=== PATIENT | male | born 1970 | race Caucasian/White ===

== ENCOUNTER 2020-04-03 06:17 | Outpatient (REF) | payer OTHER, SELFPAY ==
[2020-04-03 07:35] LABS: MANUAL DIFF FLAG NO
[2020-04-03 07:44] LABS: Basophils Absolute Auto 0.1 X10*3/uL (0.0-0.2); Basophils Percent Auto 0.7 % (0-2); Eosinophils Absolute Auto 0.3 X10*3/uL (0.0-0.4); Eosinophils Percent Auto 3.6 % (0-4); Hematocrit 46.5 % (42-52); Hemoglobin 16.3 g/dl (14.0-18.0); Imm Gran Abs Auto 0.03 X10*3/uL (0.00-0.03); Imm Gran Pct Auto 0.3 % (0.0-0.4); Lymphocytes Absolute Auto 3.1 X10*3/uL (1.2-4.9); Lymphocytes Percent Auto 34.6 % (20-40); Mean Corpuscular HGB Conc 35.1 g/dl (31.0-36.0); Mean Corpuscular Hemoglobin 30.8 pg (27.0-33.0); Mean Corpuscular Volume 87.7 fL (80-98); Mean Platelet Volume 10.9 fL (9.4-12.4); Monocytes Percent Auto 10.9 % (2-11); Neutrophils Absolute Auto 4.4 X10*3/uL (2.0-8.3); Neutrophils Percent Auto 49.9 % (45-73); Platelet Count 241 X10*3/uL (160-400); Red Cell Distribution Width 11.9 % (11.0-16.0); White Blood Count 8.8 X10*3/uL (4.8-10.8)
[2020-04-03 07:45] LABS: Glucose Urine UA NEG (NEG); Leukocyte Esterase Urine NEG (NEG); Nitrite Urine NEG (NEG); Specific Gravity - Urine 1.025 (1.005-1.025); Urine Blood NEG (NEG); Urine Ketones NEG (NEG); Urine Protein NEG (NEG-TRACE)
[2020-04-03 07:46] LABS: Appearance Urine CLEAR; Color Urine YELLOW
[2020-04-03 08:09] LABS: Alanine Aminotransferase 76 U/L (0-40); Albumin Level 4.5 g/dL (3.5-5.0); Alkaline Phosphatase 94 U/L (39-117); Anion Gap 10 (12-20); Aspartate Amino Transferase 38 U/L (5-37); Bilirubin Total 0.9 mg/dL (0.0-1.0); Blood Urea Nitrogen 15 mg/dL (9-16); Calcium 9.4 mg/dL (8.4-10.2); Carbon Dioxide 31 mmol/L (22-29); Chloride 103 mmol/L (96-108); Cholesterol 121 mg/dL; Estimated Glomerular Filt Rate > 60; Glucose Fasting 103 mg/dL (60-99); HDL Cholesterol 33 mg/dL; LDL Cholesterol Calculated 69 mg/dl; Potassium 4.4 mmol/l (3.3-5.1); Sodium 140 mmol/L (135-145); Total Protein 7.1 g/dL (6.5-8.0); Triglycerides 98 mg/dL
[2020-04-03 09:00] LABS: Prostate Specific Antigen 0.97 ng/mL (<0.05-4.0)
== END 2020-04-03 06:18 | disposition home or self-care (01) ==
LOC: HO.LAB 06:17
PROVIDERS: Visit Provider Internal Medicine
DX: I48.0 Paroxysmal atrial fibrillation (principal); I10 Essential (primary) hypertension; E78.00 Pure hypercholesterolemia, unspecified; Z12.5 Encounter for screening for malignant neoplasm of prostate
CPT/HCPCS: 36415; 80053; 80061; 81003; 84153; 85025

== ENCOUNTER 2020-05-21 13:53 | Outpatient (REF) | payer OTHER, SELFPAY | END 2020-05-21 13:54 | disposition home or self-care (01) | LOC: HO.LNP 13:53 | PROVIDERS: Visit Provider Internal Medicine | DX: Z20.828 Contact with and (suspected) exposure to other viral communicable diseases (principal) | CPT/HCPCS: U0003 ==

== ENCOUNTER 2020-08-12 07:22 | Day surgery (SDC) | payer OTHER, SELFPAY ==
--- NOTE | 2020-08-11 08:27 | HO.ANESPROP2 ---
Documented by User: Paulina Suarez 08/11/20 08:27 HPI - Anesthesia Eval Consult details Narrative: 49yo M for Colonoscopy Eliquis for h/o CVA [facility] Past Medical History Medical History CVA (cerebral vascular accident) Elevated cholesterol HTN (hypertension) On anticoagulant therapy Surgical History Surgical History History of kidney surgery Social History Social History Smoking Status: Never smoker Use of substances other than those prescribed or required for medical reasons: No Advance Directives: No Advance Directives Information Provided: Yes Meds Allergies Allergy/AdvReac Type Severity Reaction Status Date / Time No Known Allergies Allergy Verified 08/12/20 07:43 Home Medications Medication Instructions Recorded Confirmed Last Taken Type apixaban [Eliquis] 1 tab PO BID 06/26/20 06/26/20 08/08/20 History atorvastatin 1 tab PO DAILY 06/26/20 06/26/20 Unknown History lisinopril 1 tab PO DAILY 06/26/20 06/26/20 Unknown History metoprolol succinate 1 tab PO DAILY 06/26/20 06/26/20 Unknown History Exam Exam Date and Time: August 11, [id number] Assessment and Plan Assessment Anesthesia Assessment: Chart Reviewed Documented by User: Staci Lorenz 08/12/20 08:45 [facility] Past Medical History Medical History CVA (cerebral vascular accident) Elevated cholesterol HTN (hypertension) On anticoagulant therapy Surgical History Surgical History History of kidney surgery Social History Social History Smoking Status: Never smoker Use of substances other than those prescribed or required for medical reasons: No Advance Directives: No Advance Directives Information Provided: Yes Meds Allergies Allergy/AdvReac Type Severity Reaction Status Date / Time No Known Allergies Allergy Verified 08/12/20 07:43 Home Medications Medication Instructions Recorded Confirmed Last Taken Type apixaban [Eliquis] 1 tab PO BID 06/26/20 06/26/20 08/08/20 History atorvastatin 1 tab PO DAILY 06/26/20 06/26/20 Unknown History lisinopril 1 tab PO DAILY 06/26/20 06/26/20 Unknown History metoprolol succinate 1 tab PO DAILY 06/26/20 06/26/20 Unknown History Exam Airway Mallampati Class: II TM Dist: >3cm Neck ROM: Full Partial: Upper and Lower Loose/Missing/Broken Teeth: Yes Heart: RRR Lungs: CTA Assessment and Plan Assessment Anesthesia Assessment: Anesthesia Plan Discussed and Chart Reviewed Final Anesthetic Review NPO: Yes ASA Class: II and III Final Preanesthetic Review: Meds/Allgs Chart Reviewed, Consent Obtained/Reviewed and Anes Risks/Benef Reviewed Patient Risk: Intermediate Procedure Risk: Low Anesthetic Plan Anesthetic Plan: MAC: Disposition: Standard PACU
[2020-08-12 07:44] VITALS: BP 120/86; PULSE 65; RESP 16; TEMP 36.7; O2SAT 98; BMI 31.0
[2020-08-12] MEDS: Lactated Ringers 1,000 ML 100 ML IVCONT (08:01)
[2020-08-12 09:18] VITALS: BP 100/75; PULSE 65; RESP 18; TEMP 36.1; O2SAT 97
--- NOTE | 2020-08-12 09:20 | MHC.SHP ---
Pre-Procedural Eval Section B Chief Complaint: screening Details of Present Illness: screening Relevant Family History (Specify if Yes): No Relevant Social History: None Present Medications: see Short Stay Collaborative assessment Medical History: No relevant PMH History of Previous Operations: No relevant previous surgery Allergies: Allergies Allergy/AdvReac Type Severity Reaction Status Date / Time No Known Allergies Allergy Verified 08/12/20 07:43 Review of Systems Sugical H&P ROS: Negative: Constitution, Cardiovascular, Respiratory, Neurological, Psychiatric, Hem-Onc, Allergic/Immunologic, Gastrointestinal, Genitourinary, Musculoskeletal, Integumentary, Endocrine and Eyes/Ears/Nose/Throat Exam Surgical H&P Exam: Normal: HEENT, Normal: Heart, Normal: Lungs, Normal: Extremities, Normal: Abdomen, Normal: Skin and Normal: Neurological Plan I have reviewed the history and physical and performed a pertinent physical examination on my patient. No changes have occurred unless specified.
--- NOTE | 2020-08-12 09:21 | PM.OP ---
Brief Operative Note Date of Service: 08/12/20 Pre-op diagnosis: screening Post-op diagnosis: same (colon polyp) Procedure: colonoscopy Surgeon: Prasanna Jules Anesthesia: MAC Estimated blood loss (mL): 0 Pathology: other (polyp 85 cm) Condition: stable Disposition: PACU
[2020-08-12 09:33] VITALS: BP 110/76; PULSE 65; RESP 18; O2SAT 98
--- NOTE | 2020-08-12 10:14 | OP_ITS ---
SURGEON: Prasanna Jules MD INDICATIONS: Colon cancer screening. PREOPERATIVE DIAGNOSIS: POSTOPERATIVE DIAGNOSIS: PROCEDURE PERFORMED: Colonoscopy to the terminal ileum with snare polypectomy. ESTIMATED BLOOD LOSS: COMPLICATIONS: ANESTHESIA: ASSISTANTS: SPECIMENS: MEDICATIONS: Monitored anesthesia care. DESCRIPTION OF PROCEDURE: History and physical performed. The risks and benefits of the procedure were explained to the patient. Informed consent was obtained. The patient was placed in left lateral decubitus position. A digital rectal exam was performed, it was found to be normal. The Olympus pediatric video colonoscope was introduced into the rectum and advanced to the cecum without difficulty. The cecum was identified by transillumination, palpation, and identification of ileocecal valve. Examination was performed. The scope was removed. He tolerated the procedure well and was taken to recovery in stable condition. FINDINGS: The terminal ileum was normal. The visualized colonic mucosa was normal. In the right colon at 85 cm from the anal verge was an 8 mm polyp which was removed with a snare and recovered by suction. No other polyps were identified. Retroflexed examination showed small internal hemorrhoids. The quality of prep was good. IMPRESSION: Colon polyp. RECOMMENDATION: Follow up the biopsy results. MD ORIN Holder/PAOLA / [id number]
== END 2020-08-12 10:28 | disposition home or self-care (01) ==
PROVIDERS: PCP Internal Medicine; Visit Provider Internal Medicine Gastroenterology
PROC: 0DJD8ZZ Inspection of Lower Intestinal Tract, Via Natural or Artificial Opening Endoscopic (ICD-10-PCS; CPT 45378; principal; 2020-08-12 08:20)
DX: Z12.11 Encounter for screening for malignant neoplasm of colon (principal); D12.3 Benign neoplasm of transverse colon; K64.8 Other hemorrhoids; I10 Essential (primary) hypertension; E78.5 Hyperlipidemia, unspecified; Z86.73 Personal history of transient ischemic attack (TIA), and cerebral infarction without residual deficits; Z79.01 Long term (current) use of anticoagulants; Z79.899 Other long term (current) drug therapy
CPT/HCPCS: 45385; 88305

== ENCOUNTER 2020-10-27 15:28 | Outpatient (REF) | payer OTHER, SELFPAY ==
[2020-10-28 17:42] LABS: Lyme Abs Screen <0.90 index
== END 2020-10-27 15:29 | disposition home or self-care (01) ==
LOC: HO.LAB 15:28
PROVIDERS: PCP Internal Medicine; Visit Provider Internal Medicine
DX: T14.8XXA Other injury of unspecified body region, initial encounter (principal); W57.XXXA Bitten or stung by nonvenomous insect and other nonvenomous arthropods, initial encounter
CPT/HCPCS: 36415; 86617; 86618

== ENCOUNTER 2020-11-24 06:37 | Outpatient (REF) | payer OTHER, SELFPAY ==
[2020-11-24 07:01] LABS: MANUAL DIFF FLAG NO
[2020-11-24 07:04] LABS: Basophils Absolute Auto 0.1 X10*3/uL (0.0-0.2); Basophils Percent Auto 0.6 % (0-2); Eosinophils Absolute Auto 0.2 X10*3/uL (0.0-0.4); Eosinophils Percent Auto 2.4 % (0-4); Hematocrit 42.9 % (42-52); Hemoglobin 15.3 g/dl (14.0-18.0); Imm Gran Abs Auto 0.02 X10*3/uL (0.00-0.03); Imm Gran Pct Auto 0.3 % (0.0-0.4); Lymphocytes Absolute Auto 2.8 X10*3/uL (1.2-4.9); Mean Corpuscular HGB Conc 35.7 g/dl (31.0-36.0); Mean Corpuscular Hemoglobin 30.6 pg (27.0-33.0); Mean Corpuscular Volume 85.8 fL (80-98); Mean Platelet Volume 10.2 fL (9.4-12.4); Monocytes Absolute Auto 0.8 X10*3/uL (0.1-1.2); Monocytes Percent Auto 10.7 % (2-11); Neutrophils Absolute Auto 3.9 X10*3/uL (2.0-8.3); Platelet Count 216 X10*3/uL (160-400); Red Cell Distribution Width 11.9 % (11.0-16.0); White Blood Count 7.8 X10*3/uL (4.8-10.8)
[2020-11-24 07:31] LABS: Alanine Aminotransferase 53 U/L (0-40); Albumin Level 4.3 g/dL (3.5-5.0); Alkaline Phosphatase 99 U/L (39-117); Anion Gap 10 (12-20); Aspartate Amino Transferase 29 U/L (5-37); Bilirubin Total 1.4 mg/dL (0.0-1.0); Blood Urea Nitrogen 14 mg/dL (9-16); Calcium 9.6 mg/dL (8.4-10.2); Carbon Dioxide 26 mmol/L (22-29); Chloride 106 mmol/L (96-108); Cholesterol 107 mg/dL; Estimated Glomerular Filt Rate > 60; Glucose Fasting 102 mg/dL (60-99); HDL Cholesterol 31 mg/dL; LDL Cholesterol Calculated 58 mg/dl; Potassium 4.2 mmol/L (3.3-5.1); Sodium 138 mmol/L (135-145); Total Protein 6.9 g/dL (6.5-8.0); Triglycerides 90 mg/dL
== END 2020-11-24 06:38 | disposition home or self-care (01) ==
LOC: HO.LAB 06:37
PROVIDERS: PCP Internal Medicine; Visit Provider Internal Medicine
DX: Z12.5 Encounter for screening for malignant neoplasm of prostate (principal); I10 Essential (primary) hypertension; I48.0 Paroxysmal atrial fibrillation; E78.00 Pure hypercholesterolemia, unspecified
CPT/HCPCS: 36415; 80053; 80061; 84153; 85025

== ENCOUNTER 2022-01-02 07:37 | Outpatient (REF) | payer OTHER, SELFPAY ==
[2022-01-02 07:47] LABS: MANUAL DIFF FLAG NO
[2022-01-02 08:30] LABS: Basophils Absolute Auto 0.1 X10*3/uL (0.0-0.2); Basophils Percent Auto 0.8 % (0-2); Eosinophils Absolute Auto 0.2 X10*3/uL (0.0-0.4); Eosinophils Percent Auto 2.5 % (0-4); Hematocrit 43.8 % (42.0-52.0); Hemoglobin 15.8 g/dl (14.0-18.0); Imm Gran Abs Auto 0.02 X10*3/uL (0.00-0.03); Imm Gran Pct Auto 0.2 % (0.0-0.4); Lymphocytes Absolute Auto 3.3 X10*3/uL (1.2-4.9); Lymphocytes Percent Auto 35.9 % (20-40); Mean Corpuscular HGB Conc 36.1 g/dl (31.0-36.0); Mean Corpuscular Hemoglobin 30.6 pg (27.0-33.0); Mean Corpuscular Volume 84.7 fL (80.0-98.0); Mean Platelet Volume 10.8 fL (9.4-12.4); Monocytes Absolute Auto 0.8 X10*3/uL (0.1-1.2); Monocytes Percent Auto 9.3 % (2-11); Neutrophils Absolute Auto 4.7 x10*3/uL (2.0-8.3); Neutrophils Percent Auto 51.3 % (45-73); Platelet Count 247 X10*3/uL (160-400); Red Blood Count 5.17 X10*6/uL (4.60-5.80); Red Cell Distribution Width 12.3 % (11.0-16.0); White Blood Count 9.1 X10*3/uL (4.8-10.8)
[2022-01-02 09:00] LABS: Alanine Aminotransferase 72 U/L (0-40); Albumin Level 4.4 g/dL (3.5-5.0); Alkaline Phosphatase 99 U/L (39-117); Anion Gap 12 (12-20); Aspartate Amino Transferase 39 U/L (5-37); Bilirubin Total 1.1 mg/dL (0.0-1.0); Blood Urea Nitrogen 15 mg/dL (9-16); Calcium 9.6 mg/dL (8.4-10.2); Carbon Dioxide 28 mmol/L (22-29); Chloride 104 mmol/L (96-108); Cholesterol 138 mg/dL; Estimated Glomerular Filt Rate > 60; Glucose Fasting 109 mg/dL (60-99); HDL Cholesterol 36 mg/dL; LDL Cholesterol Calculated 79 mg/dl; Potassium 4.2 mmol/L (3.3-5.1); Sodium 140 mmol/L (135-145); Triglycerides 119 mg/dL
[2022-01-02 09:21] LABS: Prostate Specific Antigen 1.19 ng/mL (<0.05-4.0)
== END 2022-01-02 07:38 | disposition home or self-care (01) ==
LOC: HO.LAB 07:37
PROVIDERS: PCP Internal Medicine; Visit Provider Internal Medicine
DX: Z00.00 Encounter for general adult medical examination without abnormal findings (principal); Z12.5 Encounter for screening for malignant neoplasm of prostate
CPT/HCPCS: 36415; 80053; 80061; 84153; 85025

== ENCOUNTER 2022-10-22 06:58 | Outpatient (REF) | payer OTHER, SELFPAY ==
[2022-10-22 07:55] LABS: Estimated Average Glucose 108 mg/dL; Hemoglobin A1C 147.0218 umol/L; Hemoglobin A1c % 5.4 %
[2022-10-22 08:17] LABS: Alanine Aminotransferase 43 U/L (0-40); Albumin Level 4.2 g/dL (3.5-5.0); Alkaline Phosphatase 94 U/L (39-117); Anion Gap 10 (12-20); Aspartate Amino Transferase 22 U/L (5-37); Bilirubin Total 0.8 mg/dL (0.0-1.0); Blood Urea Nitrogen 15 mg/dL (9-16); Calcium 9.8 mg/dL (8.4-10.2); Carbon Dioxide 28 mmol/L (22-29); Chloride 106 mmol/L (96-108); Estimated Glomerular Filt Rate > 60; Glucose Random 104 mg/dL (60-115); Sodium 140 mmol/L (135-145); Total Protein 6.8 g/dL (6.5-8.0)
== END 2022-10-22 06:59 | disposition home or self-care (01) ==
LOC: HO.LAB 06:58
PROVIDERS: PCP Internal Medicine; Visit Provider Internal Medicine
DX: I10 Essential (primary) hypertension (principal); I48.0 Paroxysmal atrial fibrillation; R79.89 Other specified abnormal findings of blood chemistry
CPT/HCPCS: 36415; 80053; 83036

== ENCOUNTER 2023-08-29 06:36 | Outpatient (REF) | payer OTHER, SELFPAY ==
[2023-08-29 06:47] LABS: MANUAL DIFF FLAG NO
[2023-08-29 07:32] LABS: Basophils Absolute Auto 0.1 X10*3/uL (0.0-0.2); Basophils Percent Auto 0.8 % (0-2); Eosinophils Absolute Auto 0.4 X10*3/uL (0.0-0.4); Eosinophils Percent Auto 3.4 % (0-4); Hematocrit 46.4 % (42.0-52.0); Hemoglobin 16.4 g/dl (14.0-18.0); Imm Gran Abs Auto 0.04 X10*3/uL (0.00-0.03); Imm Gran Pct Auto 0.4 % (0.0-0.4); Lymphocytes Absolute Auto 3.3 X10*3/uL (1.2-4.9); Lymphocytes Percent Auto 31.1 % (20-40); Mean Corpuscular HGB Conc 35.3 g/dl (31.0-36.0); Mean Corpuscular Hemoglobin 30.4 pg (27.0-33.0); Mean Corpuscular Volume 85.9 fL (80.0-98.0); Mean Platelet Volume 10.5 fL (9.4-12.4); Monocytes Absolute Auto 0.8 X10*3/uL (0.1-1.2); Monocytes Percent Auto 7.3 % (2-11); Platelet Count 276 X10*3/uL (160-400); Red Cell Distribution Width 12.2 % (11.0-16.0); White Blood Count 10.5 X10*3/uL (4.8-10.8)
[2023-08-29 07:49] LABS: Alanine Aminotransferase 53 U/L (0-40); Albumin Level 4.3 g/dL (3.5-5.0); Alkaline Phosphatase 100 U/L (39-117); Anion Gap 11 (12-20); Aspartate Amino Transferase 25 U/L (5-37); Blood Urea Nitrogen 15 mg/dL (9-16); Calcium 9.5 mg/dL (8.4-10.2); Carbon Dioxide 28 mmol/L (22-29); Chloride 105 mmol/L (96-108); Cholesterol 115 mg/dL (<200); Estimated Glomerular Filt Rate > 60; Glucose Fasting 123 mg/dL (60-99); HDL Cholesterol 27 mg/dL (>40); LDL Cholesterol Calculated 66 mg/dL (<100); Potassium 3.9 mmol/L (3.3-5.1); Sodium 140 mmol/L (135-145); Total Protein 7.2 g/dL (6.5-8.0); Triglycerides 114 mg/dL (<150)
[2023-08-29 08:13] LABS: Prostate Specific Antigen 2.46 ng/mL (<0.05-4.0)
== END 2023-08-29 06:37 | disposition home or self-care (01) ==
LOC: HO.LAB 06:36
PROVIDERS: PCP Internal Medicine; Visit Provider Internal Medicine
DX: Z12.5 Encounter for screening for malignant neoplasm of prostate (principal); I10 Essential (primary) hypertension; I48.0 Paroxysmal atrial fibrillation; Z86.73 Personal history of transient ischemic attack (TIA), and cerebral infarction without residual deficits
CPT/HCPCS: 36415; 80053; 80061; 84153; 85025

== ENCOUNTER 2024-04-14 10:27 | Outpatient (REF) | payer OTHER, SELFPAY ==
[2024-04-14 10:39] LABS: MANUAL DIFF FLAG NO
[2024-04-14 11:05] LABS: Basophils Absolute Auto 0.1 X10*3/uL (0.0-0.2); Basophils Percent Auto 0.8 % (0-2); Eosinophils Absolute Auto 0.5 X10*3/uL (0.0-0.4); Eosinophils Percent Auto 6.9 % (0-4); Hematocrit 42.5 % (42.0-52.0); Hemoglobin 15.2 g/dl (14.0-18.0); Imm Gran Abs Auto 0.02 X10*3/uL (0.00-0.03); Imm Gran Pct Auto 0.3 % (0.0-0.4); Lymphocytes Absolute Auto 2.6 X10*3/uL (1.2-4.9); Lymphocytes Percent Auto 34.6 % (20-40); Mean Corpuscular HGB Conc 35.8 g/dl (31.0-36.0); Mean Corpuscular Hemoglobin 30.6 pg (27.0-33.0); Mean Corpuscular Volume 85.5 fL (80.0-98.0); Mean Platelet Volume 10.6 fL (9.4-12.4); Monocytes Absolute Auto 0.7 X10*3/uL (0.1-1.2); Monocytes Percent Auto 9.8 % (2-11); Neutrophils Absolute Auto 3.6 x10*3/uL (2.0-8.3); Neutrophils Percent Auto 47.6 % (45-73); Platelet Count 213 X10*3/uL (160-400); Red Blood Count 4.97 X10*6/uL (4.60-5.80); Red Cell Distribution Width 12.6 % (11.0-16.0); White Blood Count 7.6 X10*3/uL (4.8-10.8)
[2024-04-14 11:34] LABS: Alanine Aminotransferase 62 U/L (0-40); Albumin Level 4.4 g/dL (3.5-5.0); Alkaline Phosphatase 92 U/L (39-117); Anion Gap 12 (12-20); Aspartate Amino Transferase 40 U/L (5-37); Blood Urea Nitrogen 15 mg/dL (9-16); Calcium 9.5 mg/dL (8.4-10.2); Carbon Dioxide 27 mmol/L (22-29); Chloride 106 mmol/L (96-108); Cholesterol 117 mg/dL (<200); Estimated Glomerular Filt Rate > 60; Glucose Fasting 103 mg/dL (60-99); HDL Cholesterol 33 mg/dL (>40); LDL Cholesterol Calculated 68 mg/dL (<100); Potassium 3.9 mmol/L (3.3-5.1); Sodium 141 mmol/L (135-145); Triglycerides 84 mg/dL (<150)
[2024-04-14 11:51] LABS: Prostate Specific Antigen Scr 1.61 ng/mL (<0.05-4.0)
== END 2024-04-14 10:28 | disposition home or self-care (01) ==
LOC: HO.LAB 10:27
PROVIDERS: PCP Internal Medicine; Visit Provider Internal Medicine
DX: I10 Essential (primary) hypertension (principal); E78.00 Pure hypercholesterolemia, unspecified; Z12.5 Encounter for screening for malignant neoplasm of prostate
CPT/HCPCS: 36415; 80053; 80061; 84153; 85025

== ENCOUNTER 2024-10-01 15:48 | Outpatient (AMB) | payer OTHER, SELFPAY ==
--- NOTE | 2024-10-01 15:49 | MHC.PC.OV ---
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 The patient has been lost to follow-up with [facility]. Had previously been following to manage heart failure, atrial fibrillation and history of embolic stroke. He is now compliant with Eliquis 5 mg twice daily without any recurrence of CVA. He is no longer on diuretics. Denies any dyspnea on lightheadedness, orthopnea, PND, edema, palpitations, chest pain. He is compliant with metoprolol and lisinopril as well as atorvastatin. He would be interested in following back with [facility]. He has no concerns today. [facility] Medical History (Updated 10/01/24 @ 16:45 by JAZ Hall) Combined systolic and diastolic congestive heart failure Cardioembolic stroke On anticoagulant therapy Elevated cholesterol HTN (hypertension) CVA (cerebral vascular accident) Surgical History History of kidney surgery Review of Systems Const All systems reviewed & are unremarkable except as noted in HPI and below Physical exam (Primary Care) Vital Signs: Last Vital Signs Temp 97.3 F 10/01/24 15:52 Pulse 68 10/01/24 15:52 Resp 16 10/01/24 15:52 BP 134/92 H 10/01/24 15:52 Pulse Ox 96 10/01/24 15:52 Oxygen Delivery Method Room Air 10/01/24 15:52 BMI result Body Mass Index 32.2 Const Other: General: No fevers, malaise, unintentional weight loss HEENT: No blurred vision, diplopia. No sore throat, nasal congestion, rhinorrhea, sinus pain, ear pain Cardiovascular: No chest pain, palpitations, or leg edema Respiratory: No shortness of breath, wheezing, cough GI: No abdominal pain, nausea, vomiting, diarrhea, constipation, melena, hematochezia : No dysuria, hematuria, increased urinary frequency, decreased urinary output MSK: No myalgia, back pain Neuro: No headaches, weakness, paresthesias Skin: No rashes or lesions Coding Level of Care Code New Pt Level 4 (58083) Complex EM visit Add On G2211 Diagnoses Atrial fibrillation I48.91 HTN (hypertension) I10 Elevated cholesterol E78.00 Assessment & Plan Assessment & Plan (1) Atrial fibrillation: Code(s): I48.91 - Unspecified atrial fibrillation Category: Medical Plan: Rate controlled. Continue Eliquis 5 mg twice daily for anticoagulation. Continue metoprolol. Will check CBC for any anemia given anticoagulation. He is referred back to [facility] (2) HTN (hypertension): Code(s): I10 - Essential (primary) hypertension Category: Medical Plan: Controlled with repeat blood pressure 130/80. Continue lisinopril 5 mg and metoprolol 50 mg ER. We will check BNP to evaluate renal function and electrolyte levels. (3) Elevated cholesterol: Code(s): E78.00 - Pure hypercholesterolemia, unspecified Category: Medical Plan: Lipid panel ordered. Continue atorvastatin daily, dose to be adjusted as appropriate pending results of studies. Continue with diet low in fat and highly processed foods. Recommend regular exercise. Plan Follow-up in 6 months. Colonoscopy and PSA up-to-date. Labs ordered to be completed today or in the next, if days. Orders: Orders Basic Metabolic Panel Today E78.00 - Pure hypercholesterolemia, unspecified, I10 - Essential (primary) hypertension, I63.9 - Cerebral infarction, unspecified, Z13.1 - Encounter for screening for diabetes mellitus Complete Blood Count Auto Diff Today E78.00 - Pure hypercholesterolemia, unspecified, I10 - Essential (primary) hypertension, I63.9 - Cerebral infarction, unspecified, Z13.1 - Encounter for screening for diabetes mellitus Hemoglobin A1c Today E78.00 - Pure hypercholesterolemia, unspecified, I10 - Essential (primary) hypertension, I63.9 - Cerebral infarction, unspecified, Z13.1 - Encounter for screening for diabetes mellitus Lipid Panel Today E78.00 - Pure hypercholesterolemia, unspecified, I10 - Essential (primary) hypertension, I63.9 - Cerebral infarction, unspecified, Z13.1 - Encounter for screening for diabetes mellitus Liver Panel Today E78.00 - Pure hypercholesterolemia, unspecified, I10 - Essential (primary) hypertension, I63.9 - Cerebral infarction, unspecified, Z13.1 - Encounter for screening for diabetes mellitus TSH reflex Free T4 Today E78.00 - Pure hypercholesterolemia, unspecified, I10 - Essential (primary) hypertension, I63.9 - Cerebral infarction, unspecified, Z13.1 - Encounter for screening for diabetes mellitus Referrals Cardiology Referral I48.91 - Unspecified atrial fibrillation
--- OUTSIDE RECORDS SUMMARY | 2024-10-01 15:51 | XMS_ITS | Patient Health Record ---
Author Organization [facility] Address [address] [place] [address] Care Team Providers Care Physician Coding Specialist Name Role Phone Robert Hill MD Primary Care Provider Unavaila Prasanna Gamble Jr Unavailable [phone] Reason For Referral No Information Medications Medication SIG (Take, Route, Frequency, Duration) Notes Start Date End Date Status Vitamin B6 Active Tylenol Active Metoprolol Succinate ER 50 MG Orally Active MiraLax (colon prep) 8.3 ounce ((238) grams mixed with Gatorade or Crystal Light orally begin at 5:00 p.m. the day before the procedure for 1 day 06/09/2020 Active Atorvastatin Calcium 40 MG Orally Active Eliquis 5 MG Orally Active Lisinopril 5 MG Orally Acti ve Immunizations Vaccine Route Administration Date Status Comme nts Influenza Unknown 04/30/2020 Administered Social History Tobacco Use: Social History Observation Description Date Details (start date - stop date) Never Smoker NA - NA Tobacco Use/Smoking Question Answer Notes Patient is a nonsmoker Alcohol Screen Question Answer Notes Did you have a drink containing alcohol in the p ast year? No Points 0 Interpretation Negative Problems Problem Type SNOMED Code ICD Code Onset Dates Problem Status W/U Status Risk Notes Problem 264357207 Colon cancer screening (Z12.11) Active confirmed Problem 922650899 long-term (curre nt) use of anticoagulants (Z79.01) Active confirmed Plan Of Treatment Future Test Test Name Order Date COLONOSCOPY 06/09/2020 Insurance Providers Payer Name Payer Address Payer Phone Subscriber Number Group Number Insured Name Patient Relationship to Insured Coverage Start Date Coverage End Date [facility] [address] [place] [phone] [id number] SAM PEARCE Self - patient is the insured Medical (General) History Medical History History ICD Code stroke (thrombotic) hypertension hyperlipidemia Surgical History Surgery Date(Month/Year) Kidney Stones 2014
[2024-10-01 15:52] VITALS: BP 134/92; PULSE 68; RESP 16; TEMP 36.3; O2SAT 96; BMI 32.2
== END 2024-10-01 16:20 | disposition home or self-care (01) ==
LOC: HO.HMCHD 15:48
PROVIDERS: PCP Internal Medicine; Visit Provider Physician Assistant
DX: I48.91 Unspecified atrial fibrillation (principal); I10 Essential (primary) hypertension; E78.00 Pure hypercholesterolemia, unspecified

== ENCOUNTER → 2024-10-01 15:48 | Outpatient (BNVA) | payer OTHER, SELFPAY | PROVIDERS: PCP Internal Medicine; Visit Provider Physician Assistant ==

== ENCOUNTER 2025-04-01 14:47 | Outpatient (REF) | payer OTHER, SELFPAY ==
--- NOTE | ~2025-04-01 | XR_ITS ---
EXAMINATION: XR FOOT, RIGHT CLINICAL INFORMATION: M79.671 - Pain in right foot COMPARISON: None available. TECHNIQUE: AP, lateral, and oblique views of the right foot. FINDINGS: There is soft tissue swelling lateral to the fifth MTP joint. No erosions are identified. No degenerative changes are present. XR/XR foot RT min 3V IMPRESSION: There is soft tissue swelling lateral to the fifth MTP joint. Electronically signed by: Carlos Manuel Loredo MD 04/01/2025 05:44 PM EST
[2025-04-01 15:43] LABS: MANUAL DIFF FLAG NO
[2025-04-01 16:24] LABS: Hematocrit 45.0 % (42.0-52.0); Hemoglobin 15.9 g/dl (14.0-18.0); Imm Gran Abs Auto 0.04 X10*3/uL (0.00-0.03); Imm Gran Pct Auto 0.5 % (0.0-0.4); Lymphocytes Absolute Auto 3.2 X10*3/uL (1.2-4.9); Mean Corpuscular HGB Conc 35.3 g/dl (31.0-36.0); Mean Corpuscular Hemoglobin 30.9 pg (27.0-33.0); Mean Corpuscular Volume 87.4 fL (80.0-98.0); NRBC Abs Auto 0.000 X10*3/uL (0.0-0.012); NRBC Pct Auto 0.0 /100WBC (0.0-0.2); Platelet Count 233 X10*3/uL (160-400); Red Blood Count 5.15 X10*6/uL (4.60-5.80); White Blood Count 8.8 X10*3/uL (4.8-10.8)
[2025-04-01 16:53] LABS: Alanine Aminotransferase 57 U/L (0-40); Albumin Level 4.9 g/dL (3.5-5.0); Alkaline Phosphatase 111 U/L (39-117); Anion Gap 11 (12-20); Aspartate Amino Transferase 30 U/L (5-37); Blood Urea Nitrogen 13 mg/dL (9-16); Calcium 9.4 mg/dL (8.4-10.2); Carbon Dioxide 26 mmol/L (22-29); Chloride 108 mmol/L (96-108); Cholesterol 96 mg/dL (<200); Estimated Glomerular Filt Rate > 60; HDL Cholesterol 35 mg/dL (>40); Potassium 3.8 mmol/L (3.3-5.1); Sodium 141 mmol/L (135-145); Total Protein 7.3 g/dL (6.5-8.0); Triglycerides 42 mg/dL (<150)
[2025-04-01 17:09] LABS: Prostate Specific Antigen 1.79 ng/mL (<0.05-4.0)
--- OUTSIDE RECORDS SUMMARY | 2025-04-02 06:00 | XMS_ITS | Patient Health Record ---
Author Organization [facility] Address [address] [place] [id number] Care Team Providers Care Pad Machine Operator Name Role Phone Liz (RETIRED) Robert BRAND Primary Care Provide Prasanna Rodriguez Jr Unavailable Reason For Referral No Information Medications Medication SIG (Take, Route, Frequency, Duration) Notes Start Date End Date Status Vitamin B6 Active Tylenol Active Metoprolol Succinate ER 50 MG Tablet Extended Release 24 Hour Orally Active MiraLax (colon prep) 8.3 ounce ((238) grams mixed with Gatorade or Crystal Light orally begin at 5:00 p.m. the day before the procedure; Duration: 1 day 06/09/2020 Active Atorvastatin Calcium 40 MG Tablet Orally Active Eliquis 5 MG Tablet Orally Active Lisinopril 5 MG Tablet Orally Active Immunizations Vaccine Route Administration Date Status Comme nts Influenza Unknown 04/30/2020 Administered Social History Tobacco Use: Social History Observation Description Date Details (start date - stop date) Never Smoker NA - NA Social History Drugs/Alcohol: Social Info Question Answer Notes Alcohol Screen Did you have a drink containing alcohol in the past year? 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) use of anticoagulants (Z79.01) Active confirmed Plan Of Treatment Future Test Test Name Order Date COLONOSCOPY 06/09/2020 Insurance Providers Payer Name Payer Address Payer Phone Subscriber Number Group Number Insured Name Patient Relationship to Insured Coverage Start Date Coverage End Date [facility] [address] [facility] [place] [phone] [id number] SAM PEARCE Self - patient is the insured Medical (General) History Medical History History ICD Code stroke (thrombotic) hypertension hyperlipidemia Surgical History Surgery Date(Month/Year) Kidney Stones 2014
== END 2025-04-01 14:48 | disposition home or self-care (01) ==
LOC: HO.LAB 14:47
PROVIDERS: PCP Physician Assistant; Visit Provider Physician Assistant
DX: M79.671 Pain in right foot (principal); Z79.01 Long term (current) use of anticoagulants; E78.00 Pure hypercholesterolemia, unspecified; I10 Essential (primary) hypertension; I48.91 Unspecified atrial fibrillation; Z12.5 Encounter for screening for malignant neoplasm of prostate
CPT/HCPCS: 36415; 73630; 80048; 80061; 80076; 84153; 85025

== ENCOUNTER 2025-04-01 14:47 | Outpatient (AMB) | payer OTHER, SELFPAY ==
--- NOTE | 2025-04-01 14:42 | A.OFFPC_ITS ---
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 Required: No Accompanied by: Self / Same As Patient Allergies No Known Allergies Allergy (Verified 04/01/25 14:42) Medication List - Last Reconciled 04/01/25 by JAZ Hall apixaban (Eliquis) 1 tab PO BID atorvastatin 1 tab PO DAILY lisinopril 1 tab PO DAILY metoprolol succinate ER 1 tab PO DAILY pyridoxine (vitamin B6) 50 mg PO DAILY Tobacco use date assessed: 04/01/25 Dental Screening Dental Screen Date: 04/01/25 Did you have a dental visit in the last 12 months?: No Did you have a dental problem in the last 6 months where you did not have access to dental care?: Yes Was dental information given to patient?: Patient has dentist HPI HPI Comments History of Present Illness Details 53-year-old male with history of paroxys mal atrial fibrillation, cardioembolic stroke, basilar artery thrombosis, prediabetes, hypertension, hyperlipidemia, and congestive heart failure presents to the office today for follow up. PAF/CHF/embolic stroke/basilar artery thrombosis- has a establish care with [facility], stable with prn follow up. On Eliquis for anticoagulation as well as Toprol for rate control. Not on any diuretics. Using atorvastatin for cholesterol management. Last LDL 68. No dyspnea, lightheadedness, palpitations, chest pain Hypertension-blood pressure 122/74 in the office. On Toprol Concerns: R foot pain- ongoing since [place]. Over lateral aspect of foot. Waxes and wanes in severity, Currently mild pain. Worse with ambulation. Not dependent on shoe type. Has not tried inserts. Tylenol prn. No other history of foot issues. Health Maintenance: Last colonoscopy year follow-up advised due to tubular adenoma. Dr. Jules ROS: General: No fevers, malaise, unintentional weight loss HEENT: No blurred vision, diplopia. No sore throat, nasal congestion, rhinorrhea, sinus pain, ear pain Cardiovascular: No chest pain, palpitations, or leg edema Respiratory: No shortness of breath, wheezing, cough GI: No abdominal pain, nausea, vomiting, diarrhea, constipation, melena, hematochezia : No dysuria, hematuria, increased urinary frequency, decreased urinary output MSK: No myalgia, back pain. see hpi Neuro: No headaches, weakness, paresthesias Skin: No rashes or lesions EXAM: Constitutional - Awake and Alert, No apparent distress Eyes - PERRL Cardiovascular - S1S2, RRR, No edema Respiratory - Normal lung expansion, Normal respiratory effort, No respiratory distress, CTA bilaterally Extremities - no calf tenderness bilaterally, no swelling MSK- bony abnormality at the distal aspect of the R 5th metatarsal with tenderness at the plantar surface Skin - Warm/Dry Neurological - Alert & oriented x3 Psychological - Appropriate affect [facility] Medical History (Updated 04/01/25 @ 15:07 by JAZ Hall) Combined systolic and diastolic congestive heart failure Cardioembolic stroke On anticoagulant therapy Elevated cholesterol HTN (hypertension) CVA (cerebral vascular accident) Surgical History (Updated 10/11/24 @ 14:59 by Josy Connolly) History of colonoscopy (~08/12/20) History of kidney surgery Social History Housing: House Patient Tobacco Use Status: Never used Tobacco e-Cigarette/Vaping Use: Never Used service: No Current occupational status: employed Current occupation: [employer] Questionnaire AUDIT C Alcohol Use Questionnaire (AUDIT-C) 1. How often do you have a drink containing alcohol?: Never 3. How often do you have six or more drinks on one occasion?: Never Total Score: 0 Physical exam (Primary Care) Vital Signs: Last Vital Signs Temp 97.6 F 04/01/25 14:53 Pulse 63 04/01/25 14:53 Resp 20 04/01/25 14:53 BP 122/74 04/01/25 14:53 Pulse Ox 98 04/01/25 14:53 Oxygen Delivery Method Room Air 04/01/25 14:53 BMI result Body Mass Index 31.3 Tobacco/Smoking Status: Tobacco use Status Tobacco use date assessed 04/01/25 04/01/25 14:43 Patient Tobacco Use Status Never used Tobacco 04/01/25 14:55 e-Cigarette/Vaping Use Never Used 04/01/25 14:55 Coding Level of Care Code Est Pt Level 4 (76952) Complex EM visit Add On G2211 Diagnoses Atrial fibrillation I48.91 HTN (hypertension) I10 Elevated cholesterol E78.00 Right foot pain M79.671 Assessment & Plan Assessment & Plan (1) Atrial fibrillation: Code(s): I48.91 - Unspecified atrial fibrillation Category: Medical Plan: Rate controlled. Continue Eliquis 5 mg twice daily for anticoagulation. Continue metoprolol. Will check CBC for any anemia given anticoagulation. Reviewed last cardiology note from [facility], PRN follow-up (2) HTN (hypertension): Code(s): I10 - Essential (primary) hypertension Category: Medical Plan: Controlled. Continue lisinopril 5 mg and metoprolol 50 mg ER. We will check BNP to evaluate renal function and electrolyte levels. (3) Elevated cholesterol: Code(s): E78.00 - Pure hypercholesterolemia, unspecified Category: Medical Plan: Lipid panel ordered. Continue atorvastatin daily, dose to be adjusted as appropriate pending results of studies. Continue with diet low in fat and highly processed foods. Recommend regular exercise. (4) Right foot pain: Code(s): M79.671 - Pain in right foot Category: Medical Plan: XR of the right foot ordered and referral to Podiatry ordered given visible bony abnormality. Recommend inserts for her shoes as well as wider shoe. Plan Follow-up in 6 months. Colonoscopy and PSA up-to-date. Labs ordered to be completed today or in the next, if days. Orders: Orders XR foot RT min 3V Today M79.671 - Pain in right foot Complete Blood Count Auto Diff Today E78.00 - Pure hypercholesterolemia, unspecified, I10 - Essential (primary) hypertension, I48.91 - Unspecified atrial fibrillation, Z79.01 - intermediate manager (current) use of anticoagulants Basic Metabolic Panel Today E78.00 - Pure hypercholesterolemia, unspecified, I10 - Essential (primary) hypertension, I48.91 - Unspecified atrial fibrillation, Z79.01 - senior care (current) use of anticoagulants Lipid Panel Today E78.00 - Pure hypercholesterolemia, unspecified, I10 - Essential (primary) hypertension, I48.91 - Unspecified atrial fibrillation, Z79.01 - intermediate manager (current) use of anticoagulants Liver Panel Today E78.00 - Pure hypercholesterolemia, unspecified, I10 - Essential (primary) hypertension, I48.91 - Unspecified atrial fibrillation, Z79.01 - senior care (current) use of anticoagulants Prostate Specific Antigen Today E78.00 - Pure hypercholesterolemia, unspecified, I10 - Essential (primary) hypertension, I48.91 - Unspecified atrial fibrillation, Z79.01 - intermediate manager (current) use of anticoagulants Referrals Podiatry Referral M79.671 - Pain in right foot
[2025-04-01 14:53] VITALS: BP 122/74; PULSE 63; RESP 20; TEMP 36.4; O2SAT 98; BMI 31.3
== END 2025-04-01 15:17 | disposition home or self-care (01) ==
LOC: HO.HMCHD 14:48
PROVIDERS: PCP Physician Assistant; Visit Provider Physician Assistant
DX: I48.91 Unspecified atrial fibrillation (principal); I10 Essential (primary) hypertension; E78.00 Pure hypercholesterolemia, unspecified; M79.671 Pain in right foot

== ENCOUNTER → 2025-04-01 15:44 | Outpatient (BNV) | payer OTHER, SELFPAY | PROVIDERS: PCP Physician Assistant; Visit Provider Radiology Diagnostic Radiology | DX: M79.671 Pain in right foot (principal); M79.89 Other specified soft tissue disorders | CPT/HCPCS: 73630 ==